=== PATIENT | male | born 1990 | race African-American/Black ===

== ENCOUNTER 2019-11-11 01:38 | Emergency (ER) | payer OTHER ==
[~2019-11-11] VITALS: Ht 170.2 cm; Wt 81.6 kg
[2019-11-11 01:40] VITALS: BP 153/97
--- NOTE | 2019-11-11 01:51 | NUR ---
DR HOLDEN AT BEDSIDE
[2019-11-11] MEDS ORDERED: MAG HYDROX/AL HYDROX/SIMETH 30 ML UDC ONE (01:54)
[2019-11-11] MEDS ORDERED: LIDOCAINE VISCOUS 2% UD 15 ML UDC ONE (01:54)
[2019-11-11] MEDS ORDERED: LORAZEPAM INJ 2 MG/ML VIAL ONE (01:55)
[2019-11-11] MEDS ORDERED: LORAZEPAM INJ 2 MG/ML VIAL IM ONE (02:00)
[2019-11-11] MEDS ORDERED: MAG HYDROX/AL HYDROX/SIMETH 30 ML UDC PO ONE (02:00)
[2019-11-11] MEDS ORDERED: LIDOCAINE VISCOUS 2% UD 15 ML UDC MM ONE (02:00)
--- NOTE | 2019-11-11 06:56 | NUR ---
Patient discharged to home in stable condition. Written and verbal after care instructions given. Patient verbalizes understanding of instruction.pt.ambulatory with a steady gait
== END 2019-11-11 06:56 | disposition home or self-care (01) ==
LOC: ER 01:44
DX: R06.6 Hiccough (principal); F41.9 Anxiety disorder, unspecified; K21.9 Gastro-esophageal reflux disease without esophagitis; F32.9 Major depressive disorder, single episode, unspecified
CPT/HCPCS: 96372; 99283; J2060